=== PATIENT | female | born 1945 | race Caucasian/White ===

== ENCOUNTER 2019-03-20 16:55 | Observation (INO) | payer MEDICARE, SELFPAY ==
[2019-03-20] VITALS (26 sets, daily range): BP systolic 122–163; BP diastolic 62–106; PULSE 78–118; RESP 14–27; TEMP 36.1–38.8; O2SAT 88–96
--- NOTE | 2019-03-20 17:10 | W.ED.GENAD ---
Discharge Plan Disposition Patient Disposition: [facility] INPATIENT Condition: Stable Discharge Details Chief Complaint: Fever Clinical Impression: Sepsis, CAP (community acquired pneumonia) Primary Care Provider: [facility] ED Provider: Ron Barry Home Meds and New Rx's Prescriptions: No Action allopurinol 100 mg Tablet 100 mg PO DAILY RF: 0 carvedilol 3.125 mg Tablet 3.125 mg PO BID RF: 0 aspirin 81 mg Tablet,Chewable 81 mg PO DAILY RF: 0 torsemide 10 mg Tablet 10 mg PO DAILY RF: 0 paroxetine HCl 10 mg Tablet 10 mg PO DAILY RF: 0 levothyroxine 75 mcg Tablet 75 mcg PO DAILY RF: 0 losartan 25 mg Tablet 25 mg PO DAILY RF: 0 glipizide 5 mg Tablet 5 mg PO BID RF: 0 Medical Decision Making 73 yo female with hx of dm, pacemaker, who comes in with chief complaint of cough and weakness. She lives in [facility] and is up visiting. For the past few days has had a productive cough and worsening general weakness and chills. She did not notice any fevers but is febrile here. Denies other travel outside country, has rll crackles on exam and given her symptoms and fever suspect that she has pna. Will tx for CAP as she denies any recent admissions and has no dialysis or chronic infusions and obtain labs and xrya and monitor pt's labs show mild leukocytosis, creatinin and bun elevated but unclear her baseline, she does state she does have a hx of ckd. She is still mildly tachycardic with a fever, xray showing nonspecific peribronchial thickening. She feels too weak to go home and given her fever, tachycardia and her age and comorbiditis feel she requires admission for IV abx and monitoring Differential Diagnosis pna, copd, bronchitis Medical Records Medical records reviewed: Yes I reviewed the patient's medical records. Imaging Data Radiologic Study: Attestation: I personally reviewed and interpreted this imaging study as follows: Imaging: X-Ray Radiologist's impression: IMPRESSION: Mild peribronchial thickening and perihilar stranding suggesting bronchitis. No infiltrates. Lab Data Lab results reviewed: Yes I reviewed the patient's lab results. ECG Data Attestation: I personally reviewed and interpreted this ECG (s) as follows: Prior ECG tracings: not available for review Interpretation: sinus tachycardia, rate of 111, pr 134 HPI General Mode of arrival: EMS. Date/Time Provider Initiated Documentation: 03/20/19 16:59. Limitations to Documentation: no limitations. Information obtained by: patient. History of Present Illness 73 year old F presents to the emergency department with the chief complaint of cough, described as moderate, Patient started experiencing this day(s) (3) and it has been constant. No relieving factors improve symptom(s), No exacerbating factors reported . Patient notes fever/chills. Patient did receive the following treatments prior to arrival, none Related Data Home Medications Medication Instructions Recorded Confirmed allopurinol 100 mg PO DAILY 03/20/19 03/20/19 aspirin 81 mg PO DAILY 03/20/19 03/20/19 carvedilol 3.125 mg PO BID 03/20/19 03/20/19 glipizide 5 mg PO BID 03/20/19 03/20/19 levothyroxine 75 mcg PO DAILY 03/20/19 03/20/19 losartan 25 mg PO DAILY 03/20/19 03/20/19 paroxetine HCl 10 mg PO DAILY 03/20/19 03/20/19 torsemide 10 mg PO DAILY 03/20/19 03/20/19 Allergies Allergy/AdvReac Type Severity Reaction Status Date / Time Sulfa (Sulfonamide Allergy Intermediate Unverified 03/20/19 17:44 Antibiotics) Review of Systems Review of Systems All systems reviewed & are unremarkable except as noted in HPI and below Cardiovascular Denies chest pain Gastrointestinal Denies abdominal pain, Denies nausea and Denies vomiting Musculoskeletal Denies joint swelling Exam Const General: no acute distress Orientation: alert HENMT Head: normal to inspection Ears: external ears normal General nose exam: external nose normal Mouth: moist mucous membranes Eyes General: appearance normal, both eyes and all related structures Neck Neck: normal visual inspection Resp Effort & Inspection: normal respiratory effort and able to speak in complete sentences Cardio Jugular venous pressure: no JVD Rate: tachycardic Skin General skin exam: no rashes or lesions noted Neuro General: alert and oriented x3 Extrem General: normal to inspection Psych Mental Status: mental status grossly normal Course Lab/Test Results Lab/Test Results: 03/20/19 17:08 Blood Blood Culture - Pending 03/20/19 17:08 Blood Blood Culture - Pending
--- NOTE | 2019-03-20 17:16 | ED.GENADUL_ITS ---
Discharge Plan Disposition Patient Disposition: [facility] INPATIENT Condition: Stable Discharge Details Chief Complaint: Fever Clinical Impression: Sepsis, CAP (community acquired pneumonia) Primary Care Provider: [facility] ED Provider: Ron Barry Home Meds and New Rx's Prescriptions: No Action allopurinol 100 mg Tablet 100 mg PO DAILY RF: 0 carvedilol 3.125 mg Tablet 3.125 mg PO BID RF: 0 aspirin 81 mg Tablet,Chewable 81 mg PO DAILY RF: 0 torsemide 10 mg Tablet 10 mg PO DAILY RF: 0 paroxetine HCl 10 mg Tablet 10 mg PO DAILY RF: 0 levothyroxine 75 mcg Tablet 75 mcg PO DAILY RF: 0 losartan 25 mg Tablet 25 mg PO DAILY RF: 0 glipizide 5 mg Tablet 5 mg PO BID RF: 0 Medical Decision Making 73 yo female with hx of dm, pacemaker, who comes in with chief complaint of cough and weakness. She lives in [facility] and is up visiting. For the past few days has had a productive cough and worsening general weakness and chills. She did not notice any fevers but is febrile here. Denies other travel outside country, has rll crackles on exam and given her symptoms and fever suspect that she has pna. Will tx for CAP as she denies any recent admissions and has no dialysis or chronic infusions and obtain labs and xrya and monitor pt's labs show mild leukocytosis, creatinin and bun elevated but unclear her baseline, she does state she does have a hx of ckd. She is still mildly tachycardic with a fever, xray showing nonspecific peribronchial thickening. She feels too weak to go home and given her fever, tachycardia and her age and comorbiditis feel she requires admission for IV abx and monitoring Differential Diagnosis pna, copd, bronchitis Medical Records Medical records reviewed: Yes I reviewed the patient's medical records. Imaging Data Radiologic Study: Attestation: I personally reviewed and interpreted this imaging study as follows: Imaging: X-Ray Radiologist's impression: IMPRESSION: Mild peribronchial thickening and perihilar stranding suggesting bronchitis. No infiltrates. Lab Data Lab results reviewed: Yes I reviewed the patient's lab results. ECG Data Attestation: I personally reviewed and interpreted this ECG (s) as follows: Prior ECG tracings: not available for review Interpretation: sinus tachycardia, rate of 111, pr 134 HPI General Mode of arrival: EMS . Date/Time Provider Initiated Documentation: 03/20/19 16:59 . Limitations to Documentation: no limitations . Information obtained by: patient . History of Present Illness 73 year old F presents to the emergency department with the chief complaint of cough, described as moderate, Patient started experiencing this day(s) (3) and it has been constant. No relieving factors improve symptom(s), No exacerbating factors reported . Patient notes fever/chills. Patient did receive the following treatments prior to arrival, none Related Data Home Medications Medication Instructions Recorded Confirmed allopurinol 100 mg PO DAILY 03/20/19 03/20/19 aspirin 81 mg PO DAILY 03/20/19 03/20/19 carvedilol 3.125 mg PO BID 03/20/19 03/20/19 glipizide 5 mg PO BID 03/20/19 03/20/19 levothyroxine 75 mcg PO DAILY 03/20/19 03/20/19 losartan 25 mg PO DAILY 03/20/19 03/20/19 paroxetine HCl 10 mg PO DAILY 03/20/19 03/20/19 torsemide 10 mg PO DAILY 03/20/19 03/20/19 Allergies Allergy/AdvReac Type Severity Reaction Status Date / Time Sulfa (Sulfonamide Allergy Intermediate Unverified 03/20/19 17:44 Antibiotics) Review of Systems Review of Systems All systems reviewed & are unremarkable except as noted in HPI and below Cardiovascular Denies chest pain Gastrointestinal Denies abdominal pain, Denies nausea and Denies vomiting Musculoskeletal Denies joint swelling Exam Const General: no acute distress Orientation: alert HENMT Head: normal to inspection Ears: external ears normal General nose exam: external nose normal Mouth: moist mucous membranes Eyes General: appearance normal, both eyes and all related structures Neck Neck: normal visual inspection Resp Effort & Inspection: normal respiratory effort and able to speak in complete sentences Cardio Jugular venous pressure: no JVD Rate: tachycardic Skin General skin exam: no rashes or lesions noted Neuro General: alert and oriented x3 Extrem General: normal to inspection Psych Mental Status: mental status grossly normal Course Lab/Test Results Lab/Test Results: 03/20/19 17:08 Blood Blood Culture - Pending 03/20/19 17:08 Blood Blood Culture - Pending
[2019-03-20] MEDS: Acetaminophen 500 MG TAB 1000 MG PO (17:41)
[2019-03-20 17:50] LABS: Abs Immature Grans 0.02 k/cumm (0.0-0.09); Absolute Basophil Count 0.01 k/cumm (0.0-0.2); Absolute Eosinophil Count 0.16 k/cumm (0.0-0.7); Absolute Lymphocyte Count 0.66 k/cumm (1.2-3.4); Absolute Monocyte Count 1.16 k/cumm (0.11-0.7); Basophils % 0.1; Eosinophils % 1.4; HCT 33.4 % (36.0-46.0); HGB 11.2 g/dL (12.0-15.5); Immature Grans % 0.2; Lymphocytes % 5.6; Mean Corp. HGB Concentration 33.5 g/dL (32.0-36.0); Mean Corpuscular Hemoglobin 29.8 pg (27.0-33.0); Mean Corpuscular Volume 88.8 fL (80-95); Mean Platelet Volume 10.5 fL (8.0-11.0); Monocytes % 9.9; Neutrophils % 82.8; Platelet Count 166 x1000/uL (130-400); RBC 3.76 m/cumm (4.00-5.20); RBC Distribution Width 12.6 % (11.7-14.6); White Blood Cell Count 11.74 k/cumm (4.4-10.8)
[2019-03-20 17:51] LABS: Absolute Neutrophil Count 9.72 k/cumm (1.2-6.7)
[2019-03-20 17:54] LABS: Lactate-non-spesis 1.7 mmol/l (0.6-1.4)
[2019-03-20] MEDS: cefTRIAXone 2 GM/50 ML BAG IVPB (17:57)
[2019-03-20 18:09] LABS: ALT 28 U/L (12-78); AST 25 U/L (15-37); Alkaline Phosphatase 64 U/L (46-116); Anion Gap 10.6 mmol/L (3-11); BUN 34 mg/dL (7-18); Bilirubin, Total 0.4 mg/dL (0.2-1.0); CO2 25.4 mmol/L (21.0-32.0); CREATININE 1.74 mg/dL (0.55-1.02); Calcium 8.9 mg/dL (8.5-10.1); Chloride 97 mmol/L (98-107); Estimated GFR 28.68 (mL/min/1.73m2); Glucose 193 mg/dL (70-100); Magnesium 2.1 mg/dL (1.8-2.4); Potassium 4.7 mmol/L (3.5-5.1); Sodium 133 mmol/L (136-145); Total Protein 7.6 g/dL (6.4-8.2)
[2019-03-20 18:11] LABS: Prothrombin Time 10.2 sec (9.3-11.0)
--- NOTE | 2019-03-20 18:14 | DI.RAD_ITS ---
SYMPTOM/DIAGNOSIS: COUGH PA AND LATERAL CHEST: There are no prior comparison exams. A pacemaker is noted. The heart size is within normal limits. The aorta is mildly tortuous There are mild underlying chronic fibrotic changes. There is a superimposed abnormal density seen posteriorly on the lateral view suspicious for a lower lobe infiltrate. IMPRESSION: Posterior lower lobe infiltrate.
--- NOTE | 2019-03-20 18:44 | DI.VRAD_ITS ---
EXAM: XR Chest, 2 Views EXAM DATE/TIME: 03/20/2019 5:10 PM CLINICAL HISTORY: 73 years old, female; Patient HX: Cough x 1 wk TECHNIQUE: Imaging protocol: XR of the chest, 2 views. COMPARISON: No relevant prior studies available. FINDINGS: Lungs: Mild peribronchial thickening and perihilar stranding suggesting bronchitis. No infiltrates. Pulmonary vaculature normal. Pleural space: No pleural effusion. No pneumothorax. Heart/Mediastinum: Heart size normal. Cardiac pacemaker without gross hardware complication. Vasculature: Mild aortic ectasia. Bones/joints: No acute osseous abnormalities are identified. Other findings: No tracheal shift. IMPRESSION: Mild peribronchial thickening and perihilar stranding suggesting bronchitis. No infiltrates. Dictated and Authenticated by: Huang Dalton MD. Ordering:DAMIAN Velasquez MD
[2019-03-20] MEDS: AZITHROMYCIN 500 MG in Normal Saline 250 ML 250 MG IVPB (19:58)
[2019-03-20] MEDS: Normal Saline Flush 10 ML SYR IVP (21:40)
[2019-03-20] MEDS: Carvedilol 3.125 MG TAB PO (22:24)
--- NOTE | 2019-03-20 22:29 | W.PM.HP.N ---
Date of service: 03/20/19 Time of Service: 22:30 Assessment and Plan (1) Right lower lobe pneumonia: Current visit: Yes Status: Acute Physical findings in the right lower lobe coupled with dyspnea on exertion, cough, fever, leukocytosis. Empirically treated with ceftriaxone and azithromycin. She is not requiring supplemental oxygen at this time. No significant respiratory distress at rest (2) CHF (congestive heart failure): Current visit: Yes Status: Chronic History of a significant cardiomyopathy with an EF of 15% in the past. She reports is rebounded to EF 68% recently. She did not take her torsemide this morning. There may be a component of fluid overload. She is anxious about urinary frequency and desires to restart her diuretic in the a.m. rather than adding a diuretic this evening. Given that she has no respiratory difficulty at rest will restart torsemide 10 mg in the a.m. (3) Diabetes: Current visit: Yes Status: Chronic Known to be a diabetic. Her blood sugar is high at 193. Will place on a diabetic diet. Sliding scale insulin. Restart her glyburide in the a.m. if stable. (4) Discharge planning issues: Current visit: Yes Status: Acute Admit to observation status. [facility] [place] History of Present Illness Chief Complaint: Dyspnea on exertion, fever, chills, rigors Narrative: This is a 73-year-old woman visiting from [place]. She drove up today to visit [facility] with some friends. While visiting she began to feel weak and increasingly short of breath. She developed fever and chills. They walked her back to her car and she had trouble driving so they alerted EMS and she was brought to the hospital She has been feeling ill for about 4 days. She is also noted feeling more short of breath for about 2 weeks which she attributed to allergies. Of note she did not take her torsemide this morning because she was going to be out with friends. In the emergency room she had an elevated white count and positive exam findings in the right lower lung region. X-ray showed evidence of peribronchial stranding consistent with bronchitis. She is admitted for IV antibiotics and monitoring. Review of Systems Review of Systems Generally well but with symptoms that have developed over the last 2 weeks as per HPI. Constitutional Denies excessive sweating, Denies frequent falls and Denies headache(s) ENT Denies dizziness, Denies headache(s) and Denies throat swelling Cardiovascular Denies chest pain, Denies edema, Reports dyspnea on exertion and Denies orthopnea Respiratory Denies change in phlegm color, Denies cough, Denies hemoptysis, Denies excessive phlegm production and Reports dyspnea on exertion Gastrointestinal Denies diarrhea, Denies nausea and Denies vomiting Genitourinary Reports urinary frequency (When taking diuretic) and Denies urinary incontinence Musculoskeletal Denies back pain and Denies deformity Integumentary/Breasts Denies rash, Denies sores and Denies wounds Neurologic Denies confusion, Denies dizziness, Denies frequent falls, Denies headache(s), Denies focal weakness and Denies sensory deficit Psychiatric Denies confusion, Reports depression and Denies suicidal ideation Endocrine Denies cold intolerance and Denies excessive sweating Hematologic/Lymphatic Denies easy bleeding and Denies easy bruising Allergic/Immunologic Denies urticaria and Denies throat swelling PFSH Medical History Diabetes (Chronic) Right lower lobe pneumonia (Acute) Chronic kidney disease (CKD) (Chronic) Depression (Chronic) Pacemaker (Chronic) Left bundle branch block (Chronic) Cardiomyopathy (Chronic) CHF (congestive heart failure) (Chronic) Social History Smoking/Tobacco Use Status: Never Do you feel safe at home: Yes Do you feel safe in your relationship?: Yes Additional Social history: Significant other, boyfriend, 1-1/2 years ago. She has been depressed since that time. She is retired from [employer]. Meds Home Medications Medication Instructions Recorded Confirmed Type allopurinol 100 mg PO DAILY 03/20/19 03/20/19 History aspirin 81 mg PO DAILY 03/20/19 03/20/19 History carvedilol 3.125 mg PO BID 03/20/19 03/20/19 History glipizide 5 mg PO BID 03/20/19 03/20/19 History levothyroxine 75 mcg PO DAILY 03/20/19 03/20/19 History losartan 25 mg PO DAILY 03/20/19 03/20/19 History paroxetine HCl 10 mg PO DAILY 03/20/19 03/20/19 History torsemide 10 mg PO DAILY 03/20/19 03/20/19 History Allergies Allergy/AdvReac Type Severity Reaction Status Date / Time Sulfa (Sulfonamide Allergy Intermediate Unverified 03/20/19 17:44 Antibiotics) Exam Narrative Exam Narrative: Generally pleasant and interactive. Does not appear in any distress. No obvious cough or respiratory difficulty. Const General: cooperative, comfortable and no acute distress Orientation: alert, awake and oriented x3 HENMT Head: normal to inspection Ears: hearing grossly normal bilaterally General nose exam: external nose normal Face and sinus: face symmetric Mouth: oropharynx normal Eyes General: appearance normal, both eyes and all related structures Neck Neck: normal visual inspection Thyroid: symmetrical Carotids: normal carotid upstroke Lymphatic: no lymphadenopathy noted Chest Chest: normal inspection of the chest Resp Effort & Inspection: normal respiratory effort Auscultation: crackles on the right Cardio Jugular venous pressure: no JVD Rate: regular rate Rhythm: regular rhythm Heart Sounds: S1 normal, S2 normal and no murmurs GI Inspection: normal to inspection Palpation: soft, no hepatosplenomegaly and nontender Back/Spine/Pelvis Back: no CVA tenderness Cervical Spine: normal cervical lordosis Thoracic/Lumbar Spine: thoracic and lumbar spine normal to inspection Skin General skin exam: no rashes or lesions noted Wounds: no wounds Neuro General: alert, awake, oriented x3, moves all extremities and no focal motor deficits Cranial Nerves: CN's II-XI intact bilaterally Cognition: normal cognition Speech: speech normal Extrem General: normal to inspection and no clubbing, cyanosis or edema Psych Appearance: grossly normal Mental Status: mental status grossly normal Speech and Movement: speech and movement normal Mood: congruent mood Affect: normal affect Attitude: cooperative Thought Process: normal Thought Content: normal Insight: insight good Results Imaging Chest x-ray: report reviewed (Peribronchial stranding, no infill trait) EKG: report reviewed (Paced rhythm at 111 beats per min) Labs : 03/20/19 17:27 03/20/19 17:27 Laboratory Results - last 24 hr 03/20/19 03/20/19 03/20/19 17:27 17:27 17:27 WBC 11.74 H RBC 3.76 L Hgb 11.2 L Hct 33.4 L MCV 88.8 MCH 29.8 MCHC 33.5 RDW 12.6 Plt Count 166 MPV 10.5 Immature Gran % 0.2 Neutrophils % 82.8 Lymphocytes % 5.6 Monocytes % 9.9 Eosinophils % 1.4 Basophils % 0.1 Absolute Neutrophils 9.72 H Absolute Lymphocytes 0.66 L Absolute Monocytes 1.16 H Absolute Eosinophils 0.16 Absolute Basophils 0.01 PT INR APTT Sodium 133 L Potassium 4.7 Chloride 97 L Carbon Dioxide 25.4 Anion Gap 10.6 BUN 34 H Creatinine 1.74 H Estimated GFR/1.73 m2 28.68 Glucose 193 H Lactate 1.7 H Calcium 8.9 Magnesium 2.1 Total Bilirubin 0.4 AST 25 ALT 28 Alkaline Phosphatase 64 Total Protein 7.6 Albumin 3.0 L Procalcitonin 03/20/19 03/20/19 17:27 17:27 WBC RBC Hgb Hct MCV MCH MCHC RDW Plt Count MPV Immature Gran % Neutrophils % Lymphocytes % Monocytes % Eosinophils % Basophils % Absolute Neutrophils Absolute Lymphocytes Absolute Monocytes Absolute Eosinophils Absolute Basophils PT 10.2 INR 1.0 APTT 30.0 Sodium Potassium Chloride Carbon Dioxide Anion Gap BUN Creatinine Estimated GFR/1.73 m2 Glucose Lactate Calcium Magnesium Total Bilirubin AST ALT Alkaline Phosphatase Total Protein Albumin Procalcitonin 1.0 Last Vital Signs Temp 36.3 C L 03/20/19 20:26 Pulse 93 H 03/20/19 20:26 Resp 18 03/20/19 20:26 BP 144/67 H 03/20/19 20:26 Pulse Ox 93 L 03/20/19 20:30
[2019-03-21 06:00] VITALS: BP 146/71; PULSE 76; RESP 16; TEMP 37.1; O2SAT 96
[2019-03-21] MEDS: Levothyroxine 75 MCG TAB PO (06:03)
[2019-03-21] MEDS: Normal Saline Flush 10 ML SYR IVP (06:03)
[2019-03-21 06:52] LABS: Abs Immature Grans 0.02 k/cumm (0.0-0.09); Absolute Basophil Count 0.02 k/cumm (0.0-0.2); Absolute Eosinophil Count 0.31 k/cumm (0.0-0.7); Absolute Lymphocyte Count 0.82 k/cumm (1.2-3.4); Absolute Monocyte Count 0.98 k/cumm (0.11-0.7); Basophils % 0.2; Eosinophils % 3.5; HCT 32.9 % (36.0-46.0); HGB 10.8 g/dL (12.0-15.5); Immature Grans % 0.2; Lymphocytes % 9.3; Mean Corp. HGB Concentration 32.8 g/dL (32.0-36.0); Mean Corpuscular Hemoglobin 29.4 pg (27.0-33.0); Mean Corpuscular Volume 89.6 fL (80-95); Mean Platelet Volume 10.4 fL (8.0-11.0); Monocytes % 11.1; Neutrophils % 75.7; Platelet Count 168 x1000/uL (130-400); RBC 3.67 m/cumm (4.00-5.20); RBC Distribution Width 12.6 % (11.7-14.6); White Blood Cell Count 8.85 k/cumm (4.4-10.8)
[2019-03-21 07:14] LABS: Anion Gap 5.5 mmol/L (3-11); BUN 30 mg/dL (7-18); CO2 27.5 mmol/L (21.0-32.0); CREATININE 1.53 mg/dL (0.55-1.02); Calcium 8.9 mg/dL (8.5-10.1); Chloride 105 mmol/L (98-107); Estimated GFR 33.27 (mL/min/1.73m2); Glucose 101 mg/dL (70-100); NT-proBNP 431 pg/mL; Potassium 3.9 mmol/L (3.5-5.1); Sodium 138 mmol/L (136-145)
[2019-03-21 08:02] VITALS: BP 154/75; PULSE 81; RESP 18; TEMP 36.7; O2SAT 96
[2019-03-21 08:12] LABS: Lactate-non-spesis 0.8 mmol/l (0.6-1.4)
[2019-03-21] MEDS: PARoxetine 10 MG TAB PO (08:12)
[2019-03-21] MEDS: Losartan 25 MG TAB PO (08:12)
[2019-03-21] MEDS: glipiZIDE 5 MG TAB PO (08:12)
[2019-03-21] MEDS: Allopurinol 100 MG TAB PO (08:12)
[2019-03-21] MEDS: Aspirin 81 MG CHEW PO (08:13)
[2019-03-21] MEDS: Azithromycin 250 MG TAB PO (08:13)
[2019-03-21] MEDS: Torsemide 20 MG TAB 10 MG PO (08:13)
[2019-03-21] MEDS: Potassium Chloride 10 MEQ TABCR PO (09:16)
[2019-03-21 09:29] VITALS: O2SAT 96
--- NOTE | 2019-03-21 09:44 | PHARADMIT ---
Admission Pharmacy Clinical Review SEPSIS, COMMUNITY ACQUIRED PNEUMONIA Code Status Full Code Current Weight Wgt-77.7 kg Renally Cleared and Narrow Therapeutic Index Meds CrCl~ 34.2 mL/min Meds-OK QTc Value / Action Taken QTc-495 (Paxil, Torsemide) BP Control, Fever BP- 146/71 Tmax- 37.1C Electrolytes reviewed Na- 138 K+3.9 Mag-2.1 DVT Prophylaxis ASA Opiate Usage / Scheduled Bowel Regimen Ordered No Yes Plt/SCr for Heparin / Enoxaparin Plts-168 SCr-1.53 INR for Warfarin inr-1.0 H/H stable, WBC/Bands H&H- 10.8/32.9 WBC- 8.85 Antibiotic appropriateness Azithromycin, Rocephin Cultures and Sensitivities Blood-pending Surgical ABX d/c within 24 hr NA DM control / Insulin Dosing BG- 101 Aspart, Glipizide Heart Failure (Check EF%) (MARCO ANTONIO's, B-Block, Diuretics) Coreg, Losartan, Torsemide IV to PO Switch No Home Meds Reviewed Yes Home Meds Not Ordered All ordered Comments
[2019-03-21 10:17] LABS: Procalcitonin 5.9 ng/mL
[2019-03-21 11:30] VITALS: BP 147/63; PULSE 90; RESP 18; TEMP 36.6; O2SAT 97
--- NOTE | 2019-03-21 14:31 | W.PM.DS.N ---
Date of service: 03/21/19 Time of Service: 14:31 DS: Diagnosis Discharge Diagnosis (1) Right lower lobe pneumonia: Status: Acute (2) CHF (congestive heart failure): Status: Chronic (3) Diabetes: Status: Chronic (4) Discharge planning issues: Status: Acute Discharge Plan Disposition Patient Disposition: HOME Condition: Good Discharge Details Reason For Visit: SEPSIS, COMMUNITY ACQUIRED PNEUMONIA Admit Date/Time: 03/20/19 19:14 Admit Provider: Ron Schwarz Attending Provider: Ron Schwarz Primary Care Provider[facility] Hospital Course: 73 yo Female with hx of DM, pacemaker coming to [facility] ED with c/o cough and weakness. She is visiting from [facility]. For the last few days she has had a productive cough and worsening general weakness with chills. She denies fevers but was febrile here. She had mild leukocytosis by labs in the ED and elevated BUN and creatinine with a hx of CKD. Xray showed peribronchial thickening, she was admitted overnight for IV antibiotics and monitoring. Today she is feeling better, lungs with slight crackles to RLL. Denying shortness of breath and not requiring oxygen. She feels ready to go home. She will go home on ceftin finishing a 5 day course. Azithromycin po x 4 days. Recommend follow up in 1-2 weeks with PCP. 1) Right lower lobe pneumonia: Lung sounds improving. Not requiring oxygen, not short of breath. (2) CHF (congestive heart failure): History of a significant cardiomyopathy with an EF of 15% in the past. She reports is rebounded to EF 68% recently. She did not take her torsemide this morning. There may be a component of fluid overload. She is anxious about urinary frequency and desires to restart her diuretic in the a.m. rather than adding a diuretic this evening. Given that she has no respiratory difficulty at rest will restart torsemide 10 mg in the a.m. (3) Diabetes: Known to be a diabetic. Her blood sugar is high at 193. Will place on a diabetic diet. Sliding scale insulin. Restart her glyburide in the a.m. if stable. (4) Discharge planning issues: Admit to observation status. Forward her discharge summary to [facility] cardiovascular [place]. Home Meds and New Rx's Prescriptions: New azithromycin 250 mg Tablet 250 mg PO DAILY Qty: 4 RF: 0 cefuroxime axetil 500 mg tablet 500 mg PO Q12H 10 Days Qty: 20 RF: 0 azithromycin 250 mg tablet 250 mg PO DAILY 4 Days Qty: 4 RF: 0 Continued allopurinol 100 mg Tablet 100 mg PO DAILY RF: 0 carvedilol 3.125 mg Tablet 3.125 mg PO BID RF: 0 aspirin 81 mg Tablet,Chewable 81 mg PO DAILY RF: 0 torsemide 10 mg Tablet 10 mg PO DAILY RF: 0 paroxetine HCl 10 mg Tablet 10 mg PO DAILY RF: 0 levothyroxine 75 mcg Tablet 75 mcg PO DAILY RF: 0 losartan 25 mg Tablet 25 mg PO DAILY RF: 0 glipizide 5 mg Tablet 5 mg PO BID RF: 0 Discharge Instructions Instructions: Pacemaker (GEN), Antibiotic Resistant Bacteria (GEN), Community Acquired Pneumonia (GEN) Additional Instructions: Follow up with your Primary provider in 1-2 weeks. Take all medications as prescribed. Eat a yogurt daily for one month. Seek medical treatment immediately if you have chest pain, shortness of breath, nausea, vomiting diarrhea. Stand Alone Forms: Nursing Discharge Form Activity:: Activity as Tolerated Equipment/Supplies:: No Equipment Needed Diet:: As Tolerated Discharge Orders Discharge Orders: Discharge Order (Routine); Ordered 03/21/19 Ordered By: Aleshia Gutiérrez Discharge Data Discharge Date/Time-TO BE ENTERED AT DEPARTURE: 03/21/19 16:05 Exam Narrative Exam Narrative: Generally pleasant and interactive. Does not appear in any distress. No obvious cough or respiratory difficulty. Const General: cooperative, comfortable and no acute distress Orientation: alert, awake and oriented x3 HENMT Head: normal to inspection Ears: hearing grossly normal bilaterally General nose exam: external nose normal Face and sinus: face symmetric Mouth: oropharynx normal Eyes General: appearance normal, both eyes and all related structures Neck Neck: normal visual inspection Thyroid: symmetrical Carotids: normal carotid upstroke Lymphatic: no lymphadenopathy noted Chest Chest: normal inspection of the chest Resp Effort & Inspection: normal respiratory effort Auscultation: crackles on the right Cardio Jugular venous pressure: no JVD Rate: regular rate Rhythm: regular rhythm Heart Sounds: S1 normal, S2 normal and no murmurs GI Inspection: normal to inspection Palpation: soft, no hepatosplenomegaly and nontender Back/Spine/Pelvis Back: no CVA tenderness Cervical Spine: normal cervical lordosis Thoracic/Lumbar Spine: thoracic and lumbar spine normal to inspection Skin General skin exam: no rashes or lesions noted Wounds: no wounds Neuro General: alert, awake, oriented x3, moves all extremities and no focal motor deficits Cranial Nerves: CN's II-XI intact bilaterally Cognition: normal cognition Speech: speech normal Extrem General: normal to inspection and no clubbing, cyanosis or edema Psych Appearance: grossly normal Mental Status: mental status grossly normal Speech and Movement: speech and movement normal Mood: congruent mood Affect: normal affect Attitude: cooperative Thought Process: normal Thought Content: normal Insight: insight good DS: Data Vitals/I&O Vitals and I&O: Vital Signs Temperature 36.6 C 03/21/19 11:30 Temperature Source Tympanic 03/21/19 11:30 Pulse 90 03/21/19 11:30 Pulse Rhythm Regular 03/21/19 08:05 Pulse 97 H 03/20/19 20:00 Respiratory Rate 18 03/21/19 11:30 Respiratory Effort Non-Labored 03/21/19 08:05 Respiratory Depth Normal 03/21/19 08:05 Respiratory Pattern Normal 03/21/19 08:05 Blood Pressure 147/63 H 03/21/19 11:30 Blood Pressure Mean 111 03/20/19 17:46 Blood Pressure Position Supine 03/20/19 17:18 Pulse Oximetry 97 03/21/19 11:30 Oxygen Delivery Method Room Air 03/21/19 11:30 Oxygen Flow Rate 0 03/21/19 11:30 Pain Level 0 03/21/19 11:30 Intake & Output 03/20/19 03/21/19 03/21/19 23:59 11:59 23:59 Intake Total 310 / 310 250 / 250 Output Total 550 / 550 900 / 900 Balance -240 / -240 -650 / -650 Weight 78.5 kg 77.7 kg Intake: IV 310 / 310 10 / 10 Oral 240 / 240 Output: Urine 550 / 550 900 / 900 Other: Urine Color Yellow Yellow Urine Appearance Clear Clear Urine Odor Normal Normal Comment Less concentrated. Voiding Methods Toilet Toilet Completed studies during hospitalization [Text1]: XAM: XR Chest, 2 Views EXAM DATE/TIME: 03/20/2019 5:10 PM CLINICAL HISTORY: 73 years old, female; Patient HX: Cough x 1 wk TECHNIQUE: Imaging protocol: XR of the chest, 2 views. COMPARISON: No relevant prior studies available. FINDINGS: Lungs: Mild peribronchial thickening and perihilar stranding suggesting bronchitis. No infiltrates. Pulmonary vaculature normal. Pleural space: No pleural effusion. No pneumothorax. Heart/Mediastinum: Heart size normal. Cardiac pacemaker without gross hardware complication. Vasculature: Mild aortic ectasia. Bones/joints: No acute osseous abnormalities are identified. Other findings: No tracheal shift. IMPRESSION: Mild peribronchial thickening and perihilar stranding suggesting bronchitis. No infiltrates. Labs on day of discharge: Labs from last 24 hours 03/21/19 03/21/19 03/21/19 08:02 08:02 06:25 WBC 8.85 RBC 3.67 L Hgb 10.8 L Hct 32.9 L MCV 89.6 MCH 29.4 MCHC 32.8 RDW 12.6 Plt Count 168 MPV 10.4 Immature Gran % 0.2 Neutrophils % 75.7 Lymphocytes % 9.3 Monocytes % 11.1 Eosinophils % 3.5 Basophils % 0.2 Absolute Neutrophils 6.70 Absolute Lymphocytes 0.82 L Absolute Monocytes 0.98 H Absolute Eosinophils 0.31 Absolute Basophils 0.02 PT INR APTT Sodium Potassium Chloride Carbon Dioxide Anion Gap BUN Creatinine Estimated GFR/1.73 m2 Glucose Lactate 0.8 Calcium Magnesium Total Bilirubin AST ALT Alkaline Phosphatase NT-Pro-B Natriuret Pep Total Protein Albumin Procalcitonin 5.9 03/21/19 03/20/19 03/20/19 06:25 17:27 17:27 WBC RBC Hgb Hct MCV MCH MCHC RDW Plt Count MPV Immature Gran % Neutrophils % Lymphocytes % Monocytes % Eosinophils % Basophils % Absolute Neutrophils Absolute Lymphocytes Absolute Monocytes Absolute Eosinophils Absolute Basophils PT 10.2 INR 1.0 APTT 30.0 Sodium 138 Potassium 3.9 Chloride 105 Carbon Dioxide 27.5 Anion Gap 5.5 BUN 30 H Creatinine 1.53 H Estimated GFR/1.73 m2 33.27 Glucose 101 H D Lactate Calcium 8.9 Magnesium Total Bilirubin AST ALT Alkaline Phosphatase NT-Pro-B Natriuret Pep 431 H Total Protein Albumin Procalcitonin 1.0 03/20/19 03/20/19 03/20/19 17:27 17:27 17:27 WBC 11.74 H RBC 3.76 L Hgb 11.2 L Hct 33.4 L MCV 88.8 MCH 29.8 MCHC 33.5 RDW 12.6 Plt Count 166 MPV 10.5 Immature Gran % 0.2 Neutrophils % 82.8 Lymphocytes % 5.6 Monocytes % 9.9 Eosinophils % 1.4 Basophils % 0.1 Absolute Neutrophils 9.72 H Absolute Lymphocytes 0.66 L Absolute Monocytes 1.16 H Absolute Eosinophils 0.16 Absolute Basophils 0.01 PT INR APTT Sodium 133 L Potassium 4.7 Chloride 97 L Carbon Dioxide 25.4 Anion Gap 10.6 BUN 34 H Creatinine 1.74 H Estimated GFR/1.73 m2 28.68 Glucose 193 H Lactate 1.7 H Calcium 8.9 Magnesium 2.1 Total Bilirubin 0.4 AST 25 ALT 28 Alkaline Phosphatase 64 NT-Pro-B Natriuret Pep Total Protein 7.6 Albumin 3.0 L Procalcitonin 03/20/19 17:35 Blood Blood Culture - Pending 03/20/19 17:27 Blood Blood Culture - Pending Preliminary micro results at discharge 03/20/19 17:35 Blood Culture - Pending Blood 03/20/19 17:27 Blood Culture - Pending Blood [facility] Medical History Diabetes (Chronic) Right lower lobe pneumonia (Acute) Chronic kidney disease (CKD) (Chronic) Depression (Chronic) Pacemaker (Chronic) Left bundle branch block (Chronic) Cardiomyopathy (Chronic) CHF (congestive heart failure) (Chronic) Social History Smoking/Tobacco Use Status: Never Do you feel safe at home: Yes Do you feel safe in your relationship?: Yes Additional Social history: Significant other, boyfriend, 1-1/2 years ago. She has been depressed since that time. She is retired from [employer].
== END 2019-03-21 16:05 | disposition home or self-care (01) ==
LOC: ER 19:33 → MS 20:23
PROVIDERS: Admitting Provider Family Medicine; Emergency Provider Emergency Medicine; Visit Provider Internal Medicine
DX: J18.1 Lobar pneumonia, unspecified organism (principal); E11.22 Type 2 diabetes mellitus with diabetic chronic kidney disease; N18.9 Chronic kidney disease, unspecified; I50.9 Heart failure, unspecified; I42.9 Cardiomyopathy, unspecified
CPT/HCPCS: 36415; 80048; 80053; 84145; 87040; 93005; 96365; 96367; 99219; 99239; 99285; 71046; 83605; 83735; 83880; 85025; 85610; 85730; 93010; 99217; G0378; J0456